=== PATIENT | male | born 1970 | race Caucasian/White ===

== ENCOUNTER → 2019-12-02 | Outpatient (CLI) | payer OTHER ==
[~2019-12-02] MED LIST: CLEOCIN HCL150 MG PO; PERCOCET 7.5-31 EACH PO
== END ==
LOC: M.MRI 07:00
DX: S46.011A Strain of muscle(s) and tendon(s) of the rotator cuff of right shoulder, initial encounter (principal); S43.431A Superior glenoid labrum lesion of right shoulder, initial encounter; M19.011 Primary osteoarthritis, right shoulder; M25.811 Other specified joint disorders, right shoulder; W19.XXXA Unspecified fall, initial encounter; Y93.89 Activity, other specified; Y92.89 Other specified places as the place of occurrence of the external cause; Y99.8 Other external cause status

== ENCOUNTER → 2019-12-15 | Day surgery (SDC) | payer OTHER ==
[~2019-12-15] MED LIST changes: +ASPIR-TRIN325 MG PO; +FLOMAX0.4 MG PO; +PERCOCET 7.5-31 EAC1 PO
--- NOTE | 2019-12-15 22:50 | OP ---
[address] [address] OPERATIVE REPORT Name: VINAYAK CRAWFORD Room: [facility].#: [id number] Admission: 12/15/19 Attend Phys: Marcial Westbrook DO Discharge: Date of : 70 Report #: [id number] THIS REPORT FOR: //name// cc: Tyler Malik Adam J DO ~ THIS REPORT FOR: //name// CC: Tyler Westbrook DATE OF SERVICE: 12/15/2019 PREOPERATIVE DIAGNOSES: Right shoulder supraspinatus tear full thickness and SLAP tear. POSTOPERATIVE DIAGNOSES: Right shoulder supraspinatus tear full thickness and SLAP tear with biceps tendinopathy and partial tearing at the insertion of the labrum. PROCEDURES: Right shoulder arthroscopy with rotator cuff repair and biceps tenodesis. SURGEON: Marcial Westbrook DO [employer] MANAGER: Farzad Padgett DO ANESTHESIA: General interscalene block. ANTIBIOTICS: Ancef IV. FLUIDS: 1700 mL lactated Ringer's. ESTIMATED BLOOD LOSS: 25 mL. COMPLICATIONS: None. SPECIMENS: None. DRAINS: None. CONDITION OF PATIENT: Stable to PACU. IMPLANTS: Arthrex SpeedBridge fixation with two medial rows, one lateral row for rotator cuff repair 4.75 tenodesis with 7-mm SwiveLock. INDICATIONS FOR PROCEDURE: The patient presents to [address] [place] [address] OPERATIVE REPORT Name: VINAYAK CRAWFORD NORM Room: [facility].#: [id number] Admission: 12/15/19 Attend Phys: Marcial Westbrook DO Discharge: Date of : 70 Report #: [id number] for operative treatment of his right shoulder. I had seen him just last week, but then as well as today we went over the plan of surgery with indications reviewing his exam findings and the MRI imaging and plan of surgery with reasoning/indications and risks and complications in detail. His , mother and father were present today. Please see clinic note for full details of discussions, which had not only then, but today as well. The risks and complications were acknowledged and accepted, and we gave consent to proceed. He wished to proceed as planned. DESCRIPTION OF PROCEDURE: I marked the right upper extremity in the presence of the operative team members. Everyone agreed this was correct. Anesthesia performed interscalene block. He was then taken back to the operative suite where a briefing was performed indicating correct patient, procedure, site, antibiotics and that implants were present and sterile. All team members agreed. He was transferred over to the operating table in supine position, well-padded and secured. General anesthetic administered. He was placed into the beach chair position, appropriately secured and padded. The right upper extremity was sterilely prepped and draped in standard fashion. Timeout was performed indicating correct patient, procedure, site, antibiotics, and then implants were present and sterile. All team members agreed. Marked out shoulder, began posteriorly with an incision with scalpel. Trocar and camera introduced into the glenohumeral joint, insufflated with saline and 35 mmHg, localized an anterior portal with spinal needle. Blunt probe began the diagnostic portion of the exam. Articular cartilage was overall in good condition grade 2 chondromalacia globally, degenerative labral type tearing expected, but flap tearing was identified with biceps tendinopathy and tearing along the insertion site. Arthroscopic scissors were used to cut the biceps and a shaver to clean down the area of the stump. Visualizing the undersurface of the cuff, we could visualize a full thickness tear that was more in line and complex involving the supraspinatus full thickness seeing in the subacromial space, took pictures. No evidence of loose body. The remaining ligamentous structures and rotator cuff were within normal limits. Drained fluid at one of the subacromial space, localized the lateral portal with spinal needle scalpel, blunt shaver decompress this area of the subacromial space, so that we could get visualization of the bursal side. Tear we confirmed in the joint was the same tear on top of complex nature. We therefore removed fluid, performed a mini open procedure just off the edge of the acromion. Scalpel was taken through skin, full thickness flaps of the deltoid fascia. This was incised. Blunt dissection through the deltoid and gentle retraction was performed, removed any remaining bursa. We visualized the rotator cuff tear, was complex rasped down to good clean bone surfaces. Arthrex SpeedBridge thrown, performed medial rows at the anterior and posterior edges of the tear, punched, placed them, passed the sutures with the scorpion. It was pulling over nicely. We then passed those through an eyelet for a lateral anchor. This was punched and then placed in a lateral position and made sure that we were tightening and secure. This laid down over very nicely and then oversewed that gap with an 0 Vicryl. At [address] [address] OPERATIVE REPORT Name: VINAYAK CRAWFORD Room: [facility]#: [id number] Admission: 12/15/19 Attend Phys: Marcial Westbrook, DO Discharge: Date of : 70 Report #: [id number] that point in time, we localized the biceps tendons and within the groove performed a biceps tenodesis, locked stitch along with tendon and cut the excess tendon, so that we could get out attention appropriately and after drilling placed 7-0 SwiveLock burying the tendon within the bone and getting good purchase. All excess sutures were removed. Took final pictures, saved them, irrigated with normal saline. Closed our portal sites with 3-0 nylon simple interrupted. Mini open. We reapproximated the deltoid fascia with 0 Vicryl [id number] interrupted, 2-0 Monocryl buried deeper subcutaneous and skin was sewn with a running 3-0 nylon. Debriefing performed where we confirmed procedure, blood loss and that all counts were correct and final. All team members agreed. Sterile dressings were applied of Xeroform gauze, 4 x 4s, ABD tape, slingshot sling, extubated and taken to PACU in stable. POSTOPERATIVE COURSE AND EVALUATION: I spoke with his family members per his wishes. Addressed questions they had stated satisfaction. They were thankful for my time and efforts. He was resting in the PACU with stable vital signs. Pain was controlled. It should be noted that I went over the orders with the family, but I also talked about discharge instructions directly with the family and the patient, and DVT prophylaxis will be pharmacological with aspirin as directed until instructed otherwise. Also, mechanical DVT prophylaxis was discussed as well. Nonweightbearing. Maintain his dressings until instructed to change and placed Band-Aids, splint can come off for gentle range of motion as instructed. No active weightbearing or passive motion of the shoulder. The remaining range of motion was discussed. I went over orders and postopertive plan with resident physician. They have access to personnel as well as the office contact information and encouraged them to call anytime with questions or concerns. Followup visit was then made to them. <ELECTRONICALLY SIGNED> By: Marcial Westbrook DO 12/15/19 2250 [id number] Aira Westbrook DO /nt
== END | disposition home or self-care (01) ==
LOC: M.SUR 11:23
DX: M75.101 Unspecified rotator cuff tear or rupture of right shoulder, not specified as traumatic (principal); M75.21 Bicipital tendinitis, right shoulder; S43.431A Superior glenoid labrum lesion of right shoulder, initial encounter; S43.401A Unspecified sprain of right shoulder joint, initial encounter; Z98.890 Other specified postprocedural states; X58.XXXA Exposure to other specified factors, initial encounter; Y93.89 Activity, other specified; Y92.89 Other specified places as the place of occurrence of the external cause; Y99.8 Other external cause status

== ENCOUNTER → 2021-08-30 | Outpatient (CLI) | payer OTHER | LOC: M.MRI 07:30 | PROVIDERS: ATTEND Family Medicine | DX: M19.032 Primary osteoarthritis, left wrist (principal); M25.832 Other specified joint disorders, left wrist ==